=== PATIENT | male | born 1970 | race Caucasian/White ===

== ENCOUNTER → 2021-12-05 10:40 | Outpatient (CLI) | payer OTHER, SELFPAY ==
--- NOTE | ~2021-12-05 | MR_ITS ---
EXAMINATION: MR foot LT wo/w con DATE: 12/05/2021 11:46 INDICATION: Pressure ulcer at the left foot TECHNIQUE: Magnetic resonance imaging (MRI) of the left fore/mid foot was performed without and with 20 mL Multihance intravenous contrast. Sequences included axial, sagittal and coronal T1-weighted FSE , axial and coronal T2-weighted FS FSE, sagittal fluid sensitive FSE STIR, axial T1-weighted FS FSE a nd postcontrast axial, sagittal and coronal T1-weighted FS FSE. COMPARISON: None FINDINGS: There is a deep skin ulceration which extends to the level of the bone at the lateral aspect of the h ead of the fifth metatarsal. There is prominent marrow edema and enhancement with region of geographi c loss of T1 marrow fat signal at the head of the fifth metatarsal consistent with osteomyelitis. Wer e the ulceration and site of osteolysis is located in the region of the footplate of the lateral tapan ateral ligament complex insertion which appears torn. There is slight widening of the dorsolateral as pect of the fifth metatarsophalangeal joint space with mild medial and dorsal subluxation of the base of the fifth proximal phalanx relative to the head of the fifth metatarsal. No other bone lesions krueger spicious for osteomyelitis. Moderate osteoarthritis with mild subarticular edema-like and cystlike ch anges at the third and fourth tarsometatarsal and first metatarsophalangeal joints. Additional modera te osteoarthritis of the first interphalangeal joint. Mild osteoarthritis at many of the remaining monty ints in the mid and forefoot. Prominent diffuse fatty atrophy of the intrinsic musculature of the leo t which could be due to disuse or chronic denervation change. IMPRESSION: 1. Ulceration with underlying osteomyelitis at the lateral head of the fifth metatarsal. 2. Likely associated tear of the fifth metacarpophalangeal lateral collateral ligament complex the pr oximal footplate of which is located at the site of osteomyelitis and with mild dorsal/medial subluxa tion at the metatarsophalangeal joint space. 3. Mild to moderate polyarticular osteoarthritis in the mid and forefoot. Reviewed, dictated and finalized at location A. IMPRESSION: 1. Ulceration with underlying osteomyelitis at the lateral head of the fifth me tatarsal. 2. Likely associated tear of the fifth metacarpophalangeal lateral collateral l igament complex the proximal footplate of which is located at the site of osteo myelitis and with mild dorsal/medial subluxation at the metatarsophalangeal jamie nt space. 3. Mild to moderate polyarticular osteoarthritis in the mid and forefoot.
[2021-12-05 11:07] LABS: Estimated Glomerular Filt Rate > 60
== END ==
PROVIDERS: PCP Internal Medicine; Visit Provider Podiatrist Foot & Ankle Surgery
DX: L89.891 Pressure ulcer of other site, stage 1 (principal); M86.8X4 Other osteomyelitis, hand
CPT/HCPCS: 73720; A9577

== ENCOUNTER 2024-01-29 06:08 | Day surgery (SDC) | payer OTHER, SELFPAY ==
[2024-01-16 09:50] VITALS: BMI 33.5
[2024-01-16 11:34] VITALS: BMI 32.9
--- NOTE | 2024-01-28 10:46 | P.PNAN_ITS ---
Anes - Initial Pre Proc Eval Procedure: Operation Date: 01/29/24 08:30 Proposed Procedures p Diagnostic Colonoscopy - Ever Ibanez MD Date/Time: 01/28/24 10:46 Surgeon: Ever Ibanez MD Pre Op Diagnosis: Positive Cologuard Patient Data Age: 53 Gender: M Height: 2.13 m Weight: 150 kg Allergies Allergy/AdvReac Type Severity Reaction Status Date / Time No Known Allergies Allergy Mild Verified 01/29/24 07:13 Home Medications Medication Instructions Recorded Confirmed Type allopurinol 300 mg tablet 300 mg PO DAILY 01/16/24 01/29/24 History atorvastatin 10 mg tablet 10 mg PO DAILY 01/16/24 01/29/24 History celecoxib 200 mg capsule 200 mg PO DAILY PRN JOINT PAIN 01/16/24 01/29/24 History diltiazem HCl 120 mg 120 mg PO DAILY 01/16/24 01/29/24 History capsule,extended release 24 hr levothyroxine 150 mcg tablet 150 mcg PO DAILY 01/16/24 01/29/24 History prednisone 20 mg tablet 40 mg PO DAILY PRN FLARE UPS 01/16/24 01/29/24 History Patient hx anesthesia problems: none Family hx anesthesia problems: none Results Review: All pre-operative results and documents have been reviewed as part of the pre- operative evaluation. [facility] Past Medical History Medical History (Updated 01/29/24 @ 08:07 by Ever Ibanez MD) Hyperlipidemia Hypertension Hypothyroidism Social History Social History Smoking status: Never smoker Alcohol intake: current Drinks per week: 4 Substance use: never Substance use type: does not use Living arrangements: with family Spiritual care concerns: No Anes - Eval Final PreProcedure Day of Procedure 01/28/24 10:46 Patient weight: obese Heart: regular rate and rhythm Lungs: clear to auscultation Airway: Mallampati scale class II Neurological: alert and oriented Last oral intake: >/= 8 hours ASA classification: III Emergent: no Anesthetic plan: proceed Anesthesia type and monitoring: general GIVS and standard monitoring Results Review: All pre-operative results and documents have been reviewed as part of the pre- operative evaluation. Informed Consent: The patient's anesthetic plan and its attendant risks and benefits were discussed with the patient/family/POA. Questions were solicited and answers provided to the satisfaction of the patient/family/POA.
[2024-01-29 07:15] VITALS: BP 128/90; PULSE 81; RESP 18; TEMP 36.8; O2SAT 98
[2024-01-29] MEDS: LACTATED RINGERS 1,000 ML 150 ML IV CONT (07:18)
--- NOTE | 2024-01-29 08:05 | PM.HPGS ---
History of Present Illness History of Present Illness Consent: Risks, benefits, and alternatives have been discussed and questions answered. Patient agrees to proceed with procedure. Chief complaint: Positive Cologuard Narrative: Johnie Breen is a 53 year old male presents for colonoscopy.. Patient recently had a positive Cologuard test. Patient has had normal bowel movements. He denies abdominal pain. Patient has had no bleeding. Family history is noncontributory. Review of Systems Review of Systems: All systems reviewed & are unremarkable except as noted in HPI and below PMFSH Past Medical History Medical History (Updated 01/29/24 @ 08:07 by Ever Ibanez MD) Hyperlipidemia Hypertension Hypothyroidism Social History Social History Smoking status: Never smoker Alcohol intake: current Drinks per week: 4 Substance use: never Substance use type: does not use Living arrangements: with family Spiritual care concerns: No Meds Home Medications and Allergies Home Medications Medication Instructions Recorded Confirmed Type allopurinol 300 mg tablet 300 mg PO DAILY 01/16/24 01/29/24 History atorvastatin 10 mg tablet 10 mg PO DAILY 01/16/24 01/29/24 History celecoxib 200 mg capsule 200 mg PO DAILY PRN JOINT PAIN 01/16/24 01/29/24 History diltiazem HCl 120 mg 120 mg PO DAILY 01/16/24 01/29/24 History capsule,extended release 24 hr levothyroxine 150 mcg tablet 150 mcg PO DAILY 01/16/24 01/29/24 History prednisone 20 mg tablet 40 mg PO DAILY PRN FLARE UPS 01/16/24 01/29/24 History Allergies Allergy/AdvReac Type Severity Reaction Status Date / Time No Known Allergies Allergy Mild Verified 01/29/24 07:13 Vital Signs Vital Signs - 24 hr 01/29/24 07:15 Temperature 98.3 F Pulse Rate 81 Respiratory Rate 18 Blood Pressure 128/90 Pulse Oximetry 98 Oxygen Delivery Room Air Exam Narrative: Physical exam reveals patient to be alert. Vital signs stable. He exam is unremarkable. Patient is anicteric. Lungs are clear to auscultation and percussion heart is without murmur or extra sounds. Abdomen bowel sounds are present soft nontender with no organomegaly. Digital external rectal exam normal. Assessment and Plan Assessment and plan (1) Positive colorectal cancer screening using Cologuard test: Code(s): R19.5 - Other fecal abnormalities Status: Acute Assessment and Plan: Patient found to have positive Cologuard test. For this reason screening colonoscopy is to be performed.
[2024-01-29 08:37] VITALS: BP 118/83; PULSE 93; RESP 16; O2SAT 95
[2024-01-29 08:47] VITALS: BP 118/87; PULSE 90; RESP 20; O2SAT 98
[2024-01-29 08:57] VITALS: BP 107/84; PULSE 83; RESP 20; O2SAT 100
--- NOTE | 2024-01-29 09:56 | WPDANESPN ---
Anes - Prog Note Post-Op Date/Time: 01/29/24 09:56 Cardiovascular status: normal Respiratory status: normal Airway patency: baseline Mental status: baseline Post-Op hydration status: normal Vital Signs: Last Vital Signs Temp 36.8 C 01/29/24 07:15 Pulse 83 01/29/24 08:57 Resp 20 01/29/24 08:57 BP 107/84 01/29/24 08:57 Pulse Ox 100 01/29/24 08:57 O2 Del Method Room Air 01/29/24 08:57 Pain Score (VAS): 0 I/O: Intake & Output 01/28/24 01/29/24 01/29/24 23:59 07:59 15:59 Intake Total 475 Balance 475 Post-procedural complaints: none Patient Feedback: Patient satisfied with anesthetic care. Other Findings: Patient vital signs back to baseline. Patient denies nausea and vomiting. Patient's pain under control. Patient OK for discharge.
== END 2024-01-29 09:01 | disposition home or self-care (01) ==
PROVIDERS: PCP Internal Medicine; Visit Provider Internal Medicine Gastroenterology
PROC: 0DJD8ZZ Inspection of Lower Intestinal Tract, Via Natural or Artificial Opening Endoscopic (ICD-10-PCS; CPT 45378; principal; 2024-01-29 08:30)
DX: R19.5 Other fecal abnormalities (principal); D12.2 Benign neoplasm of ascending colon; D12.5 Benign neoplasm of sigmoid colon
CPT/HCPCS: 45385

== ENCOUNTER 2024-01-29 07:09 | Outpatient (NON) | payer OTHER, SELFPAY | END 2024-01-29 07:10 | disposition home or self-care (01) | LOC: ANHLAB 01-30 07:11 | PROVIDERS: PCP Internal Medicine; Visit Provider Internal Medicine Gastroenterology | DX: R19.5 Other fecal abnormalities (principal) | CPT/HCPCS: 88305 ==

== ENCOUNTER 2024-08-14 08:35 | Outpatient (CLI) | payer OTHER, SELFPAY ==
--- OUTSIDE RECORDS SUMMARY | 2024-08-14 08:49 | XMS_ITS | Clinical Summary ---
Author Organization [facility] Address [address] [place] [address] Care Team Providers Care Manager Investment Name Role Phone Gilson Salgado MD Primary Care Provider [phone] Source Comments [facility],non-owned Affiliates and Associated Physician Practices is amultiple site organization consisting of ambulatory clinics and hospital sitesin [place], [place], [place] and [place]. This disclosure is being madepursuant to the Care Everywhere program and may not contain all information available regarding this patient. Last updated 18.[facility] Tagstr Social History Tobacco Use Types Packs/Day Years Used Date Smoking Tobacco: Never Assessed Sex and Gender Information Value Date Recorded Sex Assigned at Not on file Gender Identity Not on file Sexual Orientation Not on file Plan of Treatment Health Maintenance Due Date Last Done Comments COLOGUARD (AGES 45-75) - COL ON CA SCREENING 1970 COLON MONITORING 1970 COLONOSCOPY - COLON CA SCREENING 1970 CT COLONOGRAPHY - COLON CA SCREENING 1970 Colorectal Cancer Screening 1970 FIT - COLON CA SCREENING 1970 FLEX SIG - COLON CA SCREENING 1970 LIPID TESTING 1970 HIV SCREENING 1985 HEPATITIS C SCREENING 09/20/1988 DTAP/TDAP/TD VACCINES (1 - Tdap) 1989 HEPATITIS B VACCINE (1 of 3 - 19+ 3-dose series) 1989 PNEUMOCOCCAL VACCINE 50+ (1 of 1 - PCV) 2020 ZOSTER VACCINE (1 of 2) 2020 COVID-19 VACCINE ( - 2023-2 5 season) 2024 INFLUENZA VACCINE (#1) 2024 DEPRESSION SCREENING 05/20/2024 HIB VACCINE Aged Out No longer eligi ble based on patient's age to complete this topic HPV VACCINE Aged Out No longer eligi ble based on patient's age to complete this topic MENINGOCOCCAL (Group B) VACC INE SHARED DECISION-MAKING Aged Out No longer eligibl e based on patient's age to complete this topic MENINGOCOCCAL GROUPS A/C/Y/W VACCINE Aged Out No longer eligible b ased on patient's age to complete this topic PNEUMOCOCCAL VACCINE Aged Out No long er eligible based on patient's age to complete this topic Care Teams Manager Investment Relationship Specialty Start Date End Date Gilson Salgado MD PCP - General Internal Medicine 11/26/13
--- OUTSIDE RECORDS SUMMARY | 2024-08-14 08:49 | XMS_ITS | Referral Summary ---
Author Organization [facility] Address [address] [place] [address] Care Team Providers Care Cotton Ball Bagger Name Role Phone Gilson Salgado MD Primary Care Provider Allergies No known active allergies Medications allopurinoL (ZYLOPRIM) 300 mg tablet Take 600 mg by mouth daily 2 Active atorvastatin (LIPITOR) 10 mg tablet Take 10 mg by mouth daily 2 Active celecoxib (CeleBREX) 200 mg capsule Take 200 mg by mouth 2 (two) times a day as needed 2 Active diltiazem (TIAZAC) 120 mg 24 hr capsule diltiazem CD 120 mg capsule,extende d release 24 hr TAKE 1 CAPSULE BY MOUTH DAILY Active levothyroxine (SYNTHROID) 150 mcg tablet TAKE 1 TABLET BY MOUTH EVERY MORNING AND 1/2 TABLET EVERY EVENING 2 Active mupirocin (BACTROBAN) 2 % ointment mupirocin 2 % topical ointment Active predniSONE (DELTASONE) 20 mg tablet prednisone 20 mg tablet TAKE 2 TABLET BY MOUTH EVERY DAY NEEDED FOR FLARE UPS Active Active Problems Problem Noted Date Diagnosed Date Hypertension 11/26/2013 Overview (08/24/2016): Hypertension Hypothyroidism 11/26/2013 Overview (08/24/2016): Hypothyroidism Late effect of fracture of lower extremity 01/18 Social History Tobacco Use Types Packs/Day Years Used Date Smoking Tobacco: Never Smokeless Tobacco: Never Tobacco Cessation:Counseling Given: Not Answered Alcohol Use Standard Drinks/Week Comments Yes 0 (1 standard drink = 0.6 oz pur e alcohol) Personal Safety Answer Date Recorded Getting School Help Needed Not on file 08/02 Sex and Gender Information Value Date Recorded Sex Assigned at Not on file Legal Sex Male 9:44 PM [employer] Gender Identity Not on file Sexual Orientation Not on file Last Filed Vital Signs Vital Sign Reading Time Taken Comments Blood Pressure 129/92 02/08/2022 1:03 PM CDT Pulse 97 02/08/2022 1:03 PM CDT Temperature 36.8 C (98.3 F) 02/08/2022 1:03 PM CDT Respiratory Rate 20 02/08/2022 1:03 PM CDT Oxygen Saturation 97% 02/08/2022 1:03 PM CDT Inhaled Oxygen Concentration - - Weight 152.2 kg (335 lb 9.6 oz) 02/08/2022 1:03 PM CDT Height 213.4 cm (7') 04/01/2014 2:57 PM [employer] TE[employer] Body Mass Index 33.44 04/01/2014 2:57 PM [employer] Plan of Treatment Not on file Insurance Care Teams Cotton Ball Bagger Relationship Specialty Start Date End Date Gilson Salgado MD PCP - General 04/01/14
--- OUTSIDE RECORDS SUMMARY | 2024-08-14 08:50 | XMS_ITS | Data Portability ---
Author Organization [place] - [employer], Main Office Address [address] [place] [address] Assessment Encounter Date Assessment Date Assessment LastModified by Organization Details LastModified Time 11/27/2022 11/27/2022 Blood free. Continue current therapy follow-up in 4 screenings reviewed Not available 11/27/2022 20:13:12 05/28/2023 05/28/2023 Will continue current therapy blood work Cologuard all questions answered follow-up 6 [email or web address] Not available 05/28/2023 22:11:55 Plan of Treatment Reminders Order Date Submit Date Provider Last Modified By Organization Details Last Modified Time Details Appointments None recorded. Lab noninvasive colorectal cancer DNA + occult blood screening, QL, stool 2023 024 [facility] [employer] (Cologuard Orders Only), [address], [address], [place], [address], 4 05:53:45 T3, free, serum or plasma 2023 024 [facility] (Lab), [address] [place], [address], 4 13:20:34 T4, free, serum 2023 024 [facility] (Lab), [address] [place], [address], 4 13:20:32 TSH, serum or plasma 2023 024 [facility] (Lab), [address] [place], [address], 4 13:30:31 CBC w/ auto diff [email or web address] (Lab), [address] [place], [address], 4 13:11:46 lipid panel, serum 2023 024 [facility] (Lab), [address] [place], [address], 4 13:28:15 CMP, serum or plasma 2023 024 [facility] (Lab), [address] [place], [address], 4 13:28:21 PSA, serum or plasma 2022 023 [facility] (Lab), [address] [place], [address], 3 09:25:49 CBC w/ auto diff 2022 023 [facility] (Lab), [address] [place], [address], 3 19:21:02 TSH, serum or plasma 2022 023 [facility] (Lab), [address] [place], [address], 3 20:27:07 T4, free, serum 2022 023 [facility] (Lab), [address] [place], [address], 3 20:04:46 T3, free, serum or plasma 2022 023 [facility] (Lab), [address] [place], [address], 3 20:04:48 lipid panel, serum 2022 023 [facility] (Lab), [address] [place], [address], 19:47:06 CMP, serum or plasma 2022 023 [facility] (Lab), [address] [place], [address], 19:47:14 Referral None recorded. Procedures None recorded. Surgeries None recorded. Imaging None recorded. Medication Orders diltiazem CD 120 mg capsule,ext ended release 24 hr 2022 023 [address] [id number], [address] [place], [place], [id number], 3 14:30:58 allopurinol 300 mg tablet 2022 023 [id number], [address] [place] [address], [id number], 3 14:30:58 atorvastati n 10 mg tablet [address] [facility] #[facility]329, [address] [place], [place], [id number], 3 14:30:58 Patient TargetsNo targets recorded. Patient Instructions Encounter Date Encounter Id Patient Instructions Last Modified By Organization Details Last Modified Time 11/27/2022 [id number] risk assessment* [email or web address] Not availabl e 11/27/2022 20:13:29 INFLUENZA VACCIN E TD/TDAP PNEUMONIA VACCINE Ordered Recommend ed today, patient declined Patient will get at local pharmacy/health department Recomm ended at age 65 SHINGLES Ordered Recommend ed today, patient declined Patient will get at local pharmacy/health department PSA Ordered No screening necessary patient is up to date COLORECTAL SCREENING No screening necessary patient is up to date DEPRESSION SCREENING Negative BMI Overweight continue your current weight loss efforts try to lose 5% of your body weight try to lose 10% of your body weight NUTRITION PHYSICAL ACTIVITY Need more exercise/physical activity ALCOHOL USE No alcohol use Occasional/So cial Use TOBACCO USE non smoker LUNG CANCER SCREENING Non Smoker-not indicated SEXUALLY ACTIVE HEPATITIS C SCREENING Not indicated GLUCOSE SCREENING LIPID SCREENING [email or web address] Not available 11/27/2022 12:32:52 Reason for Referral None Reported. Results Created Date Observation Date Name Description Value Unit Range Abnormal Flag Note LastModifiedBy Organization Detail LastModifiedTime 04/05/20 22 04/05/2022 C REACT KEVIN PROTE IN,UL TRA SENS C-reactive protein 0.12 mg/dL 0.0-0. 5 Not Available [facility] (Lab) [address] [place], [address], 04/05/2022 19:35:54 04/05/20 22 04/05/2022 COMPR EHENS KEVIN METAB OLIC PANEL sodium 140 mmol/ L 137-14 5 Not Available [facility] (Lab) [address] [place], [address], 04/05/2022 19:35:50 04/05/20 22 04/05/2022 COMPR EHENS KEVIN METAB OLIC PANEL potassium 4.5 mmol/ L 3.5-5. 1 Not Available [facility] (Lab) [address] [place], [address], 04/05/2022 19:35:50 04/05/20 22 04/05/2022 COMPR EHENS KEVIN METAB OLIC PANEL chloride 105 mmol/ L 98-107 Not Available [facility] (Lab) [address] [place], [address], 04/05/2022 19:35:50 04/05/20 22 04/05/2022 COMPR EHENS KEVIN METAB OLIC PANEL carbon dioxide 27 mmol/ L 22-30 Not Available [facility] (Lab) [address] [place], [address], 04/05/2022 19:35:50 04/05/20 22 04/05/2022 COMPR EHENS KEVIN METAB OLIC PANEL anion gap 12.5 mmol/ L 14-22 low Not Available [facility] (Lab) [address] [place], [address], 04/05/2022 19:35:50 04/05/20 22 04/05/2022 COMPR EHENS KEVIN METAB OLIC PANEL glucose 100 mg/dL 70-99 high Not Available [facility] (Lab) [address] [place], [address], 04/05/2022 19:35:50 04/05/20 22 04/05/2022 COMPR EHENS KEVIN METAB OLIC PANEL BUN 11 mg/dL 8-19 Not Available [facility] (Lab) [address] [place], [address], 04/05/2022 19:35:50 04/05/20 22 04/05/2022 COMPR EHENS KEVIN METAB OLIC PANEL creatinine 0.82 mg/dL 0.66-1 .25 Not Available [facility] (Lab) [address] [place], [address], 04/05/2022 19:35:50 04/05/20 22 04/05/2022 COMPR EHENS KEVIN METAB OLIC PANEL GFR >60 Refer ence Range : [place] ge GFR Healt hy Adult : >60 mL/mi n/1.7 3 m2 Chron ic Kidne y Disea se: 15-60 mL/mi n/1.7 3 m2 Kidne y Failu re: <15/m L/min /1.73 m2 www.n iddk. nih.g ov The MDRD study equat ion has not been valid ated in child nathen <18 years of age; pregn ant women ; the elder ly >85 years of age; or in some racia l or ethni c subgr oups, such as Hispa nics. Outsi de the valid ated neel eters , estim ated GFR is less accur ate, requi ring clini justice judgm ent on a case- by-ca se basis . Clini justice inter preta tion for other races and ages must be made by the clini trav. The MDRD study equat ion has not been valid ated for the evalu ation of serum creat inine relat ed to nutri jonathan l statu s or medic ation usage . For perso ns <18 years of age, a pedia tric GFR calcu lator is avail able on the [facility] websi te: https ://celso w.kid jose.o rg/pr ofess ional s/kdo qi/gf r_cal culat or Not Available [facility] (Lab) [address] [place], [address], 04/05/2022 19:35:50 04/05/20 22 04/05/2022 COMPR EHENS KEVIN METAB OLIC PANEL alkaline phosphatase 77 U/L 38-126 Not Available [facility] (Lab) [address] [place], [address], 04/05/2022 19:35:50 04/05/20 22 04/05/2022 COMPR EHENS KEVIN METAB OLIC PANEL alanine aminotransfe rase 24 U/L 0-50 Not Available [facility] (Lab) [address] [place], [address], 04/05/2022 19:35:50 04/05/20 22 04/05/2022 COMPR EHENS KEVIN METAB OLIC PANEL aspartate aminotransfe rase 26 U/L 15-46 Not Available [facility] (Lab) [address] [place], [address], 04/05/2022 19:35:50 04/05/20 22 04/05/2022 COMPR EHENS KEVIN METAB OLIC PANEL bilirubin, total 0.80 mg/dL 0.20-1 .30 Not Available [facility] (Lab) [address] [place], [address], 04/05/2022 19:35:50 04/05/20 22 04/05/2022 COMPR EHENS KEVIN METAB OLIC PANEL calcium 9.6 mg/dL 8.4-10 .2 Not Available [facility] (Lab) [address] [place], [address], 04/05/2022 19:35:50 04/05/20 22 04/05/2022 COMPR EHENS KEVIN METAB OLIC PANEL total protein 6.9 g/dL 6.3-8. 2 Not Available [facility] (Lab) [address] [place], [address], 04/05/2022 19:35:50 04/05/20 22 04/05/2022 COMPR EHENS KEVIN METAB OLIC PANEL albumin 4.2 g/dL 3.4-5. 0 Not Available [facility] (Lab) [address] [place], [address], 04/05/2022 19:35:50 04/05/20 22 04/05/2022 COMPR EHENS KEVIN METAB OLIC PANEL globulin 2.7 g/dL 2.6-4. 2 Not Available [facility] (Lab) [address] [place], [address], 04/05/2022 19:35:50 04/05/20 22 04/05/2022 COMPR EHENS KEVIN METAB OLIC PANEL A/G ratio 1.6 ratio 1.0-2. 0 Not Available [facility] (Lab) [address] [place], [address], 04/05/2022 19:35:50 04/05/20 22 04/05/2022 SEDIM ENTAT ION RATE erythrocyte sedimentatio n rate 7 mm/HR 0-20 Not Available [facility] (Lab) [address] [place], [address], 04/05/2022 19:15:14 04/05/20 22 04/05/2022 CBC W/O DIFFE RENTI AL white blood cells 7.5 x10'3 /uL 4.2-10 .8 Not Available [facility] (Lab) [address] [place], [address], 04/05/2022 18:49:53 04/05/20 22 04/05/2022 CBC W/O DIFFE RENTI AL red blood cells 5.07 x10'6 /uL 4.10-5 .80 Not Available [facility] (Lab) [address] [place], [address], 04/05/2022 18:49:53 04/05/20 22 04/05/2022 CBC W/O DIFFE RENTI AL hemoglobin 15.5 g/dL 13.2-1 7.0 Not Available [facility] (Lab) [address] [place], [address], 04/05/2022 18:49:53 04/05/20 22 04/05/2022 CBC W/O DIFFE RENTI AL hematocrit 48.2 % 39.3-5 0.0 Not Available [facility] (Lab) [address] [place], [address], 04/05/2022 18:49:53 04/05/20 22 04/05/2022 CBC W/O DIFFE RENTI AL mean red cell volume 95.1 fL 80.0-9 7.0 Not Available [facility] (Lab) [address] [place], [address], 04/05/2022 18:49:53 04/05/20 22 04/05/2022 CBC W/O DIFFE RENTI AL mean red cell hemoglobin 30.6 pg 27.0-3 3.0 Not Available [facility] (Lab) [address] [place], [address], 04/05/2022 18:49:53 04/05/20 22 04/05/2022 CBC W/O DIFFE RENTI AL mean RBC HGB concentratio n 32.2 g/dL 31.0-3 6.0 Not Available [facility] (Lab) [address] [place], [address], 04/05/2022 18:49:53 04/05/20 22 04/05/2022 CBC W/O DIFFE RENTI AL red cell distribution width 13.3 % 11.8-1 5.5 Not Available [facility] (Lab) [address] [place], [address], 04/05/2022 18:49:53 04/05/2004/05/2022 CBC W/O DIFFE RENTI AL platelets 254 x10'3 /uL 150-40 0 Not Available [facility] (Lab) [address] [place], [address], 04/05/2022 18:49:53 04/05/2004/05/2022 CBC W/O DIFFE RENTI AL mean platelet volume 11.1 fL 9.0-12 .4 Not Available [facility] (Lab) [address] [place], [address], 04/05/2022 18:49:53 11/14/19 23 11/13/2022 CBC/C OMPLE TE BLD COUNT W/DIF F white blood cells 8.3 x10'3 /uL 4.2-10 .8 Not Available [facility] (Lab) [address] [place], [address], 11/13/2022 19:21:02 11/14/1911/13/2022 CBC/C OMPLE TE BLD COUNT W/DIF F red blood cells 5.36 x10'6 /uL 4.10-5 .80 Not Available [facility] (Lab) [address] [place], [address], 11/13/2022 19:21:02 11/14/19 23 11/13/2022 CBC/C OMPLE TE BLD COUNT W/DIF F hemoglobin 16.1 g/dL 13.2-1 7.0 Not Available [facility] (Lab) [address] [place], [address], 11/13/2022 19:21:02 11/14/19 23 11/13/2022 CBC/C OMPLE TE BLD COUNT W/DIF F hematocrit 50.5 % 39.3-5 0.0 high Not Available [facility] (Lab) [address] [place], [address], 11/13/2022 19:21:02 11/14/19 23 11/13/2022 CBC/C OMPLE TE BLD COUNT W/DIF F mean red cell volume 94.2 fL 80.0-9 7.0 Not Available [facility] (Lab) [address] [place], [address], 11/13/2022 19:21:02 11/14/19 23 11/13/2022 CBC/C OMPLE TE BLD COUNT W/DIF F mean red cell hemoglobin 30.0 pg 27.0-3 3.0 Not Available [facility] (Lab) [address] [place], [address], 11/13/2022 19:21:02 11/14/19 23 11/13/2022 CBC/C OMPLE TE BLD COUNT W/DIF F mean RBC HGB concentratio n 31.9 g/dL 31.0-3 6.0 Not Available [facility] (Lab) [address] [place], [address], 11/13/2022 19:21:02 11/14/19 23 11/13/2022 CBC/C OMPLE TE BLD COUNT W/DIF F red cell distribution width 14.5 % 11.8-1 5.5 Not Available [facility] (Lab) [address] [place], [address], 11/13/2022 19:21:02 11/14/19 23 11/13/2022 CBC/C OMPLE TE BLD COUNT W/DIF F platelets 239 x10'3 /uL 150-40 0 Not Available [facility] (Lab) [address] [place], [address], 11/13/2022 19:21:02 11/14/19 23 11/13/2022 CBC/C OMPLE TE BLD COUNT W/DIF F mean platelet volume 11.3 fL 9.0-12 .4 Not Available [facility] (Lab) [address] [place], [address], 11/13/2022 19:21:02 11/14/19 23 11/13/2022 CBC/C OMPLE TE BLD COUNT W/DIF F neutrophils 71.2 % 39.0-7 2.0 Not Available [facility] (Lab) [address] [place], [address], 11/13/2022 19:21:02 11/14/19 23 11/13/2022 CBC/C OMPLE TE BLD COUNT W/DIF F lymphocytes 18.3 % 16.0-4 7.0 Not Available [facility] (Lab) [address] [place], [address], 11/13/2022 19:21:02 11/14/19 23 11/13/2022 CBC/C OMPLE TE BLD COUNT W/DIF F monocytes 8.2 % 5.0-12 .0 Not Available [facility] (Lab) [address] [place], [address], 11/13/2022 19:21:02 11/14/19 23 11/13/2022 CBC/C OMPLE TE BLD COUNT W/DIF F eosinophils 1.9 % 1.0-7. 0 Not Available [facility] (Lab) [address] [place], [address], 11/13/2022 19:21:02 11/14/19 23 11/13/2022 CBC/C OMPLE TE BLD COUNT W/DIF F basophils 0.2 % 0.0-2. 0 Not Available [facility] (Lab) [address] [place], [address], 11/13/2022 19:21:02 11/14/19 23 11/13/2022 CBC/C OMPLE TE BLD COUNT W/DIF F immature granulocytes 0.2 % 0.00-0 .50 Not Available [facility] (Lab) [address] [place], [address], 11/13/2022 19:21:02 11/14/19 23 11/13/2022 CBC/C OMPLE TE BLD COUNT W/DIF F neutrophils, absolute count 5.92 x10'3 /uL 1.5-8. 0 Not Available [facility] (Lab) [address] [place], [address], 11/13/2022 19:21:02 11/14/1911/13/2022 CBC/C OMPLE TE BLD COUNT W/DIF F lymphocytes, absolute count 1.52 x10'3 /uL 1.07-3 .43 Not Available [facility] (Lab) [address] [place], [address], 11/13/2022 19:21:02 11/14/1911/13/2022 CBC/C OMPLE TE BLD COUNT W/DIF F monocytes, absolute count 0.68 x10'3 /uL 0.29-0 .99 Not Available [facility] (Lab) [address] [place], [address], 11/13/2022 19:21:02 11/14/19 23 11/13/2022 CBC/C OMPLE TE BLD COUNT W/DIF F eosinophils, absolute count 0.16 x10'3 /uL 0.02-0 .53 Not Available [facility] (Lab) [address] [place], [address], 11/13/2022 19:21:02 11/14/19 23 11/13/2022 CBC/C OMPLE TE BLD COUNT W/DIF F basophils, absolute count 0.02 x10'3 /uL 0.01-0 .08 Not Available [facility] (Lab) [address] [place], [address], 11/13/2022 19:21:02 11/14/19 23 11/13/2022 CBC/C OMPLE TE BLD COUNT W/DIF F immature granulocytes ,absolute 0.02 x10'3 /uL 0.00-0 .05 Not Available [facility] (Lab) [address] [place], [address], 11/13/2022 19:21:02 11/14/19 23 11/13/2022 CBC/C OMPLE TE BLD COUNT W/DIF F nucleated red blood cells 0.0 % -0 Not Available [facility] (Lab) [address] [place], [address], 11/13/2022 19:21:02 11/14/1911/13/2022 CBC/C OMPLE TE BLD COUNT W/DIF F NRBC# 0.00 x10'3 /uL Not Available [facility] (Lab) [address] [place], [address], 11/13/2022 19:21:02 11/14/19 23 11/13/2022 LIPID PANEL cholesterol 141 mg/dL 140-19 9 NIH LEIDY NSUS RECOM MENDA TION FOR CALVIN STERO L: ADULT CHILD LOW RISK: <200 <170 BORDE RLINE : <200- 239 ----- HIGH RISK: >240 >200 Not Available [facility] (Lab) [address] [place], [address], 11/13/2022 19:47:06 11/14/19 23 11/13/2022 LIPID PANEL triglyceride s 194 mg/dL 0-150 high NIH LEIDY NSUS REPOR T RECOM MENDA TION FOR TRIGL YCERI RONNI: ADULT CHILD LOW RISK: <150 ----- BODER LINE: 150-1 99 ----- HIGH RISK: >200 ----- Not Available [facility] (Lab) [address] [place], [address], 11/13/2022 19:47:06 11/14/1911/13/2022 LIPID PANEL HDL cholesterol 42 mg/dL 40- Not Available [facility] (Lab) [address] [place], [address], 11/13/2022 19:47:06 11/14/1911/13/2022 LIPID PANEL LDL cholesterol, calculated 60 mg/dL 0-130 NIH LEIDY NSUS REPOR T RECOM MENDA TIONS FOR LDL: ADULT CHILD LOW RISK <130 <110 (OPTI MAL LDL) <100 ----- BORDE RLINE : 130-1 59 ----- HIGH RISK: >160 >130 A TRIGL YCERI DE RESUL T >400 INVAL IDATE S THE CALCU LATIO N FOR LDL FRACT IONAT ION - THE LDL RESUL T WILL NOT BE REPOR LUKE. Not Available [facility] (Lab) [address] [place], [address], 11/13/2022 19:47:06 11/14/19 23 11/13/2022 COMPR EHENS KEVIN METAB OLIC PANEL sodium 142 mmol/ L 137-14 5 Not Available [facility] (Lab) [address] [place], [address], 11/13/2022 19:47:14 11/14/1911/13/2022 COMPR EHENS KEVIN METAB OLIC PANEL potassium 4.4 mmol/ L 3.5-5. 1 Not Available [facility] (Lab) [address] [place], [address], 11/13/2022 19:47:14 11/14/19 23 11/13/2022 COMPR EHENS KEVIN METAB OLIC PANEL chloride 104 mmol/ L 98-107 Not Available [facility] (Lab) [address] [place], [address], 11/13/2022 19:47:14 11/14/19 23 11/13/2022 COMPR EHENS KEVIN METAB OLIC PANEL carbon dioxide 27 mmol/ L 22-30 Not Available [facility] (Lab) [address] [place], [address], 11/13/2022 19:47:14 11/14/19 23 11/13/2022 COMPR EHENS KEVIN METAB OLIC PANEL anion gap 15.4 mmol/ L 14-22 Not Available [facility] (Lab) [address] [place], [address], 11/13/2022 19:47:14 11/14/19 23 11/13/2022 COMPR EHENS KEVIN METAB OLIC PANEL glucose 83 mg/dL 70-99 Not Available [facility] (Lab) [address] [place], [address], 11/13/2022 19:47:14 11/14/19 23 11/13/2022 COMPR EHENS KEVIN METAB OLIC PANEL BUN 14 mg/dL 8-19 Not Available [facility] (Lab) [address] [place], [address], 11/13/2022 19:47:14 11/14/19 23 11/13/2022 COMPR EHENS KEVIN METAB OLIC PANEL creatinine 1.06 mg/dL 0.66-1 .25 Not Available [facility] (Lab) [address] [place], [address], 11/13/2022 19:47:14 11/14/19 23 11/13/2022 COMPR EHENS KEVIN METAB OLIC PANEL GFR >60 Refer ence Range : [place] ge GFR Healt hy Adult : >60 mL/mi n/1.7 3 m2 Chron ic Kidne y Disea se: 15-60 mL/mi n/1.7 3 m2 Kidne y Failu re: <15/m L/min /1.73 m2 www.n iddk. nih.g ov The MDRD study equat ion has not been valid ated in child nathen <18 years of age; pregn ant women ; the elder ly >85 years of age; or in some racia l or ethni c subgr oups, such as Hispa nics. Outsi de the valid ated neel eters , estim ated GFR is less accur ate, requi ring clini justice judgm ent on a case- by-ca se basis . Clini justice inter preta tion for other races and ages must be made by the clini trav. The MDRD study equat ion has not been valid ated for the evalu ation of serum creat inine relat ed to nutri jonathan l statu s or medic ation usage . For perso ns <18 years of age, a pedia tric GFR calcu lator is avail able on the [facility] websi te: https ://celso w.kid jose.o rg/pr ofess ional s/kdo qi/gf r_cal culat or Not Available [facility] (Lab) [address] [place], [address], 11/13/2022 19:47:14 11/14/1911/13/2022 COMPR EHENS KEVIN METAB OLIC PANEL alkaline phosphatase 91 U/L 38-126 Not Available [facility] (Lab) [address] [place], [address], 11/13/2022 19:47:14 11/14/1911/13/2022 COMPR EHENS KEVIN METAB OLIC PANEL alanine aminotransfe rase 30 U/L 0-50 Not Available [facility] (Lab) [address] [place], [address], 11/13/2022 19:47:14 11/14/1911/13/2022 COMPR EHENS KEVIN METAB OLIC PANEL aspartate aminotransfe rase 32 U/L 15-46 Not Available [facility] (Lab) [address] [place], [address], 11/13/2022 19:47:14 11/14/19 23 11/13/2022 COMPR EHENS KEVIN METAB OLIC PANEL bilirubin, total 0.70 mg/dL 0.20-1 .30 Not Available [facility] (Lab) [address] [place], [address], 11/13/2022 19:47:14 11/14/19 23 11/13/2022 COMPR EHENS KEVIN METAB OLIC PANEL calcium 9.7 mg/dL 8.4-10 .2 Not Available [facility] (Lab) [address] [place], [address], 11/13/2022 19:47:14 11/14/19 23 11/13/2022 COMPR EHENS KEVIN METAB OLIC PANEL total protein 7.6 g/dL 6.3-8. 2 Not Available [facility] (Lab) [address] [place], [address], 11/13/2022 19:47:14 11/14/19 23 11/13/2022 COMPR EHENS KEVIN METAB OLIC PANEL albumin 4.5 g/dL 3.4-5. 0 Not Available [facility] (Lab) [address] [place], [address], 11/13/2022 19:47:14 11/14/19 23 11/13/2022 COMPR EHENS KEVIN METAB OLIC PANEL globulin 3.1 g/dL 2.6-4. 2 Not Available [facility] (Lab) [address] [place], [address], 11/13/2022 19:47:14 11/14/19 23 11/13/2022 COMPR EHENS KEVIN METAB OLIC PANEL A/G ratio 1.5 ratio 1.0-2. 0 Not Available [facility] (Lab) [address] [place], [address], 11/13/2022 19:47:14 11/14/19 23 11/13/2022 T4 FREE free T4 1.64 NG/dL 0.78-2 .19 Not Available [facility] (Lab) [address] [place], [address], 11/13/2022 20:04:46 11/14/19 23 11/13/2022 T3 FREE free T3 3.6 pg/mL 2.77-5 .27 Not Available [facility] (Lab) [address] [place], [address], 11/13/2022 20:04:47 11/14/19 23 11/13/2022 TSH thyroid-stim ulating hormone 0.355 uIU/m L 0.465- 4.680 low Not Available [facility] (Lab) [address] [place], [address], 11/13/2022 20:27:07 11/14/19 23 11/13/2022 PSA SCREE N PSA medicare screen 0.90 NG/mL 0.00-4 .00 Not Available [facility] (Lab) [address] [place], [address], 11/13/2022 20:27:17 05/28/19 24 05/28/2023 CBC/C OMPLE TE BLD COUNT W/DIF F white blood cells 9.4 x10'3 /uL 4.2-10 .8 Not Available [facility] (Lab) [address] [place], [address], 05/28/2023 12:41:45 05/28/19 24 05/28/2023 CBC/C OMPLE TE BLD COUNT W/DIF F red blood cells 5.35 x10'6 /uL 4.10-5 .80 Not Available [facility] (Lab) [address] [place], [address], 05/28/2023 12:41:45 05/28/19 24 05/28/2023 CBC/C OMPLE TE BLD COUNT W/DIF F hemoglobin 17.0 g/dL 13.2-1 7.0 Not Available [facility] (Lab) [address] [place], [address], 05/28/2023 12:41:45 05/28/19 24 05/28/2023 CBC/C OMPLE TE BLD COUNT W/DIF F hematocrit 51.3 % 39.3-5 0.0 high Not Available [facility] (Lab) [address] [place], [address], 05/28/2023 12:41:45 05/28/19 24 05/28/2023 CBC/C OMPLE TE BLD COUNT W/DIF F mean red cell volume 95.9 fL 80.0-9 7.0 Not Available [facility] (Lab) [address] [place], [address], 05/28/2023 12:41:45 05/28/19 24 05/28/2023 CBC/C OMPLE TE BLD COUNT W/DIF F mean red cell hemoglobin 31.8 pg 27.0-3 3.0 Not Available [facility] (Lab) [address] [place], [address], 05/28/2023 12:41:45 05/28/19 24 05/28/2023 CBC/C OMPLE TE BLD COUNT W/DIF F mean RBC HGB concentratio n 33.1 g/dL 31.0-3 6.0 Not Available [facility] (Lab) [address] [place], [address], 05/28/2023 12:41:45 05/28/19 24 05/28/2023 CBC/C OMPLE TE BLD COUNT W/DIF F red cell distribution width 12.9 % 11.8-1 5.5 Not Available [facility] (Lab) [address] [place], [address], 05/28/2023 12:41:45 05/28/19 24 05/28/2023 CBC/C OMPLE TE BLD COUNT W/DIF F platelets 246 x10'3 /uL 150-40 0 Not Available [facility] (Lab) [address] [place], [address], 05/28/2023 12:41:45 05/28/19 24 05/28/2023 CBC/C OMPLE TE BLD COUNT W/DIF F mean platelet volume 10.7 fL 9.0-12 .4 Not Available [facility] (Lab) [address] [place], [address], 05/28/2023 12:41:45 05/28/19 24 05/28/2023 CBC/C OMPLE TE BLD COUNT W/DIF F neutrophils 69.7 % 39.0-7 2.0 Not Available [facility] (Lab) [address] [place], [address], 05/28/2023 12:41:45 05/28/19 24 05/28/2023 CBC/C OMPLE TE BLD COUNT W/DIF F lymphocytes 18.5 % 16.0-4 7.0 Not Available [facility] (Lab) [address] [place], [address], 05/28/2023 12:41:45 05/28/19 24 05/28/2023 CBC/C OMPLE TE BLD COUNT W/DIF F monocytes 9.0 % 5.0-12 .0 Not Available [facility] (Lab) [address] [place], [address], 05/28/2023 12:41:45 05/28/19 24 05/28/2023 CBC/C OMPLE TE BLD COUNT W/DIF F eosinophils 2.3 % 1.0-7. 0 Not Available [facility] (Lab) [address] [place], [address], 05/28/2023 12:41:45 05/28/19 24 05/28/2023 CBC/C OMPLE TE BLD COUNT W/DIF F basophils 0.2 % 0.0-2. 0 Not Available [facility] (Lab) [address] [place], [address], 05/28/2023 12:41:45 05/28/19 24 05/28/2023 CBC/C OMPLE TE BLD COUNT W/DIF F immature granulocytes 0.3 % 0.00-0 .50 Not Available [facility] (Lab) [address] [place], [address], 05/28/2023 12:41:45 05/28/19 24 05/28/2023 CBC/C OMPLE TE BLD COUNT W/DIF F neutrophils, absolute count 6.53 x10'3 /uL 1.5-8. 0 Not Available [facility] (Lab) [address] [place], [address], 05/28/2023 12:41:45 05/28/19 24 05/28/2023 CBC/C OMPLE TE BLD COUNT W/DIF F lymphocytes, absolute count 1.73 x10'3 /uL 1.07-3 .43 Not Available [facility] (Lab) [address] [place], [address], 05/28/2023 12:41:45 05/28/19 24 05/28/2023 CBC/C OMPLE TE BLD COUNT W/DIF F monocytes, absolute count 0.84 x10'3 /uL 0.29-0 .99 Not Available [facility] (Lab) [address] [place], [address], 05/28/2023 12:41:45 05/28/19 24 05/28/2023 CBC/C OMPLE TE BLD COUNT W/DIF F eosinophils, absolute count 0.22 x10'3 /uL 0.02-0 .53 Not Available [facility] (Lab) [address] [place], [address], 05/28/2023 12:41:45 05/28/19 24 05/28/2023 CBC/C OMPLE TE BLD COUNT W/DIF F basophils, absolute count 0.02 x10'3 /uL 0.01-0 .08 Not Available [facility] (Lab) [address] [place], [address], 05/28/2023 12:41:45 05/28/19 24 05/28/2023 CBC/C OMPLE TE BLD COUNT W/DIF F immature granulocytes ,absolute 0.03 x10'3 /uL 0.00-0 .05 Not Available [facility] (Lab) [address] [place], [address], 05/28/2023 12:41:45 05/28/19 24 05/28/2023 CBC/C OMPLE TE BLD COUNT W/DIF F nucleated red blood cells 0.0 % -0 Not Available [facility] (Lab) [address] [place], [address], 05/28/2023 12:41:45 05/28/19 24 05/28/2023 CBC/C OMPLE TE BLD COUNT W/DIF F NRBC# 0.00 x10'3 /uL Not Available [facility] (Lab) [address] [place], [address], 05/28/2023 12:41:45 05/28/19 24 05/28/2023 T4 FREE free T4 1.37 NG/dL 0.78-2 .19 Not Available [facility] (Lab) [address] [place], [address], 05/28/2023 13:20:32 05/28/19 24 05/28/2023 T3 FREE free T3 3.6 pg/mL 2.77-5 .27 Not Available [facility] (Lab) [address] [place], [address], 05/28/2023 13:20:34 05/28/19 24 05/28/2023 LIPID PANEL cholesterol 163 mg/dL 140-19 9 NIH LEIDY NSUS RECOM MENDA TION FOR CALVIN STERO L: ADULT CHILD LOW RISK: <200 <170 BORDE RLINE : <200- 239 ----- HIGH RISK: >240 >200 Not Available [facility] (Lab) [address] [place], [address], 05/28/2023 13:28:15 05/28/19 24 05/28/2023 LIPID PANEL triglyceride s 163 mg/dL 0-150 high NIH LEIDY NSUS REPOR T RECOM MENDA TION FOR TRIGL YCERI RONNI: ADULT CHILD LOW RISK: <150 ----- BODER LINE: 150-1 99 ----- HIGH RISK: >200 ----- Not Available [facility] (Lab) [address] [place], [address], 05/28/2023 13:28:15 05/28/19 24 05/28/2023 LIPID PANEL HDL cholesterol 45 mg/dL 40- Not Available [facility] (Lab) [address] [place], [address], 05/28/2023 13:28:15 05/28/19 24 05/28/2023 LIPID PANEL LDL cholesterol, calculated 85 mg/dL 0-130 NIH LEIDY NSUS REPOR T RECOM MENDA TIONS FOR LDL: ADULT CHILD LOW RISK <130 <110 (OPTI MAL LDL) <100 ----- BORDE RLINE : 130-1 59 ----- HIGH RISK: >160 >130 A TRIGL YCERI DE RESUL T >400 INVAL IDATE S THE CALCU LATIO N FOR LDL FRACT IONAT ION - THE LDL RESUL T WILL NOT BE REPOR LUKE. Not Available [facility] (Lab) [address] [place], [address], 05/28/2023 13:28:15 05/28/19 24 05/28/2023 COMPR EHENS KEVIN METAB OLIC PANEL sodium 140 mmol/ L 137-14 5 Not Available [facility] (Lab) [address] [place], [address], 05/28/2023 13:28:21 05/28/19 24 05/28/2023 COMPR EHENS KEVIN METAB OLIC PANEL potassium 4.0 mmol/ L 3.5-5. 1 Not Available [facility] (Lab) [address] [place], [address], 05/28/2023 13:28:21 05/28/19 24 05/28/2023 COMPR EHENS KEVIN METAB OLIC PANEL chloride 103 mmol/ L 98-107 Not Available [facility] (Lab) [address] [place], [address], 05/28/2023 13:28:21 05/28/19 24 05/28/2023 COMPR EHENS KEVIN METAB OLIC PANEL carbon dioxide 28 mmol/ L 22-30 Not Available [facility] (Lab) [address] [place], [address], 05/28/2023 13:28:21 05/28/19 24 05/28/2023 COMPR EHENS KEVIN METAB OLIC PANEL anion gap 13.0 mmol/ L 14-22 low Not Available [facility] (Lab) [address] [place], [address], 05/28/2023 13:28:21 05/28/19 24 05/28/2023 COMPR EHENS KEVIN METAB OLIC PANEL glucose 84 mg/dL 70-99 Not Available [facility] (Lab) [address] [place], [address], 05/28/2023 13:28:21 05/28/19 24 05/28/2023 COMPR EHENS KEVIN METAB OLIC PANEL BUN 13 mg/dL 8-19 Not Available [facility] (Lab) [address] [place], [address], 05/28/2023 13:28:21 05/28/19 24 05/28/2023 COMPR EHENS KEVIN METAB OLIC PANEL creatinine 0.84 mg/dL 0.66-1 .25 Not Available [facility] (Lab) [address] [place], [address], 05/28/2023 13:28:21 05/28/19 24 05/28/2023 COMPR EHENS KEVIN METAB OLIC PANEL GFR >60 Refer ence Range : [place] ge GFR Healt hy Adult : >60 mL/mi n/1.7 3 m2 Chron ic Kidne y Disea se: 15-60 mL/mi n/1.7 3 m2 Kidne y Failu re: <15/m L/min /1.73 m2 www.n iddk. nih.g ov The MDRD study equat ion has not been valid ated in child nathen <18 years of age; pregn ant women ; the elder ly >85 years of age; or in some racia l or ethni c subgr oups, such as Leena nics. Outsi de the valid ated neel eters , estim ated GFR is less accur ate, requi ring clini justice judgm ent on a case- by-ca se basis . Clini justice inter preta tion for other races and ages must be made by the clini trav. The MDRD study equat ion has not been valid ated for the evalu ation of serum creat inine relat ed to nutri jonathan l statu s or medic ation usage . For perso ns <18 years of age, a pedia tric GFR calcu lator is avail able on the F websi te: https ://celso mccormack.jordyn garcia.o blair/pr ofess ional s/kdo qi/gf r_cal culat or Not Available [facility] (Lab) [address] [place], [address], 05/28/2023 13:28:21 05/28/19 24 05/28/2023 COMPR EHENS KEVIN METAB OLIC PANEL alkaline phosphatase 88 U/L 38-126 Not Available [facility] (Lab) [address] [place], [address], 05/28/2023 13:28:21 05/28/19 24 05/28/2023 COMPR EHENS KEVIN METAB OLIC PANEL alanine aminotransfe rase 40 U/L 0-50 Not Available [facility] (Lab) [address] [place], [address], 05/28/2023 13:28:21 05/28/19 24 05/28/2023 COMPR EHENS KEVIN METAB OLIC PANEL aspartate aminotransfe rase 32 U/L 15-46 Not Available [facility] (Lab) [address] [place], [address], 05/28/2023 13:28:21 05/28/19 24 05/28/2023 COMPR EHENS KEVIN METAB OLIC PANEL bilirubin, total 0.80 mg/dL 0.20-1 .30 Not Available [facility] (Lab) [address] [place], [address], 05/28/2023 13:28:21 05/28/19 24 05/28/2023 COMPR EHENS KEVIN METAB OLIC PANEL calcium 10.1 mg/dL 8.4-10 .2 Not Available [facility] (Lab) [address] [place], [address], 05/28/2023 13:28:21 05/28/19 24 05/28/2023 COMPR EHENS KEVIN METAB OLIC PANEL total protein 7.8 g/dL 6.3-8. 2 Not Available [facility] (Lab) [address] [place], [address], 05/28/2023 13:28:21 05/28/19 24 05/28/2023 COMPR EHENS KEVIN METAB OLIC PANEL albumin 4.7 g/dL 3.4-5. 0 Not Available [facility] (Lab) [address] [place], [address], 05/28/2023 13:28:21 05/28/19 24 05/28/2023 COMPR EHENS KEVIN METAB OLIC PANEL globulin 3.1 g/dL 2.6-4. 2 Not Available [facility] (Lab) [address] [place], [address], 05/28/2023 13:28:21 05/28/19 24 05/28/2023 COMPR EHENS KEVIN METAB OLIC PANEL A/G ratio 1.5 ratio 1.0-2. 0 Not Available [facility] (Lab) [address] [place], [address], 05/28/2023 13:28:21 05/28/19 24 05/28/2023 TSH thyroid-stim ulating hormone 0.797 uIU/m L 0.465- 4.680 Not Available [facility] (Lab) [address] [place], [address], 05/28/2023 13:30:31 11/17/19 24 11/17/2023 COLOG UARD cologuard result reportable Sample Could Not Be Proces sed n/a The stool excee ds the allow able weigh t (300 grams ). The patie nt will be conta cted to initi ate a new sampl e colle ction . Not Available [facility] (Cologuard Orders Only) [address], [place], [address], 11/20/2023 05:53:45 12/03/19 24 12/03/2023 COLOG UARD cologuard result reportable Positi ve negati ve abnormal POSIT KEVIN TEST RESUL T. A posit kevin Colog uard resul t shoul d be follo wed with a colon oscop y or visua l exami natio n of the colon . The tee l value (refe rence range ) for this assay is negat kevin. TEST DESCR IPTIO N: [place] site algor ithmi c keven sis of stool DNA-b mauri montalvo with hemog lobin immun oassa y. Quant itati ve value s of indiv idual bioma rkers are not repor table and are not assoc iated with indiv idual bioma rker resul t refer ence range s. Colog uard is inten ded for color ectal cance r scree sarah of adult s of eithe r sex, 45 years or older , who are at [facility] for color ectal cance r (CRC) . Colog uard has been appro nedra for use by the U.[place]. FDA. The perfo rmanc e of Colog uard was estab lishe d in a cross secti onal study of [facility] adult s aged 50-84 . Colog uard perfo rmanc e in patie nts ages 45 to 49 years was estim ated by sub-g roup keven sis of near- age group s. Colon oscop ies perfo rmed for a posit kevin resul t may find as the most clini sue signi kevin t lescameron n: color ectal cance r [4.0% ], advan sandro adeno ma (incl uding sessi le iftikhar luke polyp s great er than or equal to 1cm diame ter) [20%] or non- advan sandro adeno ma [31%] ; or no color ectal neopl zoie [45%] . These estim ates are deriv ed from a prosp ectiv e cross -sect ional scree sarah study of 10,00 0 indiv idual s at [facility] risk for color ectal cance r who were scree renetta with both Colog uard and colon oscop y. (Nish Spicer al, N Engl J Med 2014; 370(1 4):12 86-12 97.) Colog uard may produ ce a false negat kevin or false posit kevin resul t (no color ectal cance r or preca ncero us polyp prese nt at colon oscop y follo w up). A negat kevin Colog uard test resul t does not guara ntee the absen ce of CRC or advan sandro adeno ma (pre- cance r). The curre nt Colog uard scree sarah inter eric is every 3 years . (Amer ican Cance r Socie ty and U.S. Multi -Soci ety Task Force ). Colog uard perfo rmanc e data in a 10,00 0 patie nt pivot al study using colon oscop y as the refer ence metho d can be acces sed at the follo wing locat ion: www.e xactl abs.c om/re sults . Addit ional descr iptio n of the Colog uard test proce ss, warni ngs and preca ution s can be found at www.c ologu gold.c om. Not Available [facility] (Cologuard Orders Only) [address], [place], [address], 12/07/2023 18:09:06 02/29/20 22 02/28/2022 XR, foot [facility] [address] [place] [address] Patien t Name: JOHNIE QURESHI Access ion #: [id number] Sex: M : 1970 7 Locati on: RAD Attend ing Physic fabi: BAN STEVE Orderi Physic fabi: BAN STEVE Exam Date: 2021 2:49 PM Exam Name: XR FOOT LT 3V+ Admitt ing Diagno sis(es ): RADIOL OGY REPORT - FINAL EXAM: XR FOOT LT 3V+ HISTOR Y: PRESSU RE ULCER OF OTHER SITE,S TAGE 2 51-yea r-old male with left foot pressu re ulcer latera lly. COMPAR OSMEL: Radiog raphs dated 2021. TECHNI QUE: Three views of the left foot were perfor med. FINDIN GS: See below. IMPRES [place]: 1. No acute fractu re of the left foot. 2. Postop erativ e change s of resect ion of the distal 5th metata rsal Page 1 of 2 [facility] Patien t Name: JOHNIE QURESHI ion #: [id number] Sex: M : 1970 7 Exam Date: 2021 2:49 PM Exam Name: XR FOOT LT 3V+ Admitt ing Diagno sis(es ): re-christopher ntifie d. 3. Gas in the soft tissue s of the latera l aspect of the forefo ot, consis tent with open wound. No osseou s erosio ns are identi fied to sugges t advanc ed osteom yeliti s. No radiop aque foreig n bodies are identi fied in the soft tissue s. Modera te osteoa rthrit is of the 1st MTP and IP joints ; mild to modera te osteoa rthrit is of the midfoo t and ankle. 4. Other incide ntal findin gs includ e planta r calcan eal bone spur, Achill es insert ion enthes ophyte , and os trigon um. Create d and electr onical ly signed by: Yoshi love MD Signed Date: 2021 4:31 PM (CT) Dictat ed by: Yoshi love MD DD: 2021 4:31 PM (CT) DT: 2021 4:31 PM (CT) Page 2 of 2 MIGRATION. [facility] (Imaging) [address] [place], [address], 07/18/2022 04:52:22 03/01/20 22 03/01/2022 imagi ng/di agnos tic resul t No observ ation record ed. MIGRATION. [address], [place], [address], 07/18/2022 04:52:22 03/15/20 22 03/01/2022 MRI, foot, w/wo contr ast No observ ation record ed. MIGRATION. [id number] Not Available 07/18/2022 04:52:22 Result Notes None recorded. Problems Name Problem SNOMED Code Status Onset Date Resolution Date Notes Provider Name and Address Organization Details Recorded Time Renewal of prescript ion Active 2021 Not Available [facility] 4 05:11:34 Open wound of left lower leg 85147497181 227016 Active 2021 Not Available [facility] 4 05:11:34 Pressure ulcer of left foot 11233538753 430499 Active 2021 Not Available [facility] 4 05:11:34 Postopera tive care Active 2021 Not Available [facility] 4 05:11:34 Abdominal pain 14860110 Completed Not Available [facility] 3 04:45:06 Dehiscenc e of surgical wound 30788797 Active 2021 Not Available [facility] 4 05:11:34 Chronic osteomyel itis of foot 610390230 Active 2021 Not Available [facility] 4 05:11:34 Osteomyel itis of ankle AND/OR foot 58745000 Active 2021 Not Available [facility] 4 05:11:34 Ulcer of toe 431881049 Active 2021 Not Available [facility] 4 05:11:34 Hyperuric emia 83780250 Active Not Available [facility] 4 05:11:34 Dyslipide bill 361256677 Active 2018 Not Available [facility] 4 05:11:34 Hypertens kevin disorder 06129389 Active Not Available [facility] 4 05:11:34 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 Procedures Surgical History Date Name Laterality Status Provider Name and Address Organization Details Recorded Time Cholecystectomy completed Not Available [facility] 07/18/2022 04:41:02 Foot Surgery completed Mary Reyes RN [place] - [place] [employer] 07/26/2022 10:10:56 Imaging Results Imaging Date Name Status [facility]Modified by [facility] Details LastModified Time 03/01/2022 imaging/diagn ostic result completed [id number], [place], [address], 07/18/2022 04:52:22 03/01/2022 MRI, foot, w/wo contrast completed [id number] Information not available 07/18/2022 04:52:22 02/28/2022 XR, foot completed [id number] [facility] (Imaging) [address] [place], [address], 07/18/2022 04:52:22 Procedure Notes None recorded. Medical Equipment None Reported. Allergies No known drug allergies Medications Name Sig Start Date Stop Date Status Note LastModified by Organization Details LastModified Time celecoxib 200 mg capsule TAKE 1 CAPSULE BY MOUTH TWICE DAILY NEEDED 2023 active Not Available Not Available Not Avai lable prednisone 10 mg tablet 04/27 completed Not Available Not Available Not Available doxycyclin e hyclate 100 mg capsule TAKE 1 CAPSULE BY MOUTH TWICE DAILY FOR 10 DAYS DIRECTED 07/26 completed Not Available Not Available Not Available clindamyci n HCl 300 mg capsule Take 1 capsule 3 times a day by oral route for 7 days. active Not Available Not Available No t Available trazodone 50 mg tablet 04/11 completed Not Available Not Available Not Available atorvastat in 10 mg tablet TAKE 1 TABLET BY MOUTH EVERY DAY 2023 active Not Available Not Available Not Avai lable hydrocodon e 5 mg-acetami nophen 325 mg tablet TK 1 TO 2 TS PO Q 4-6 H PRN P RATED 4-6 04/27 completed Not Available Not Available Not Available Medrol (Low) 4 mg tablets in a dose pack Take by oral route. 03/22 completed Not Available Not Available Not Available prednisone 20 mg tablet TAKE 2 TABLETS BY MOUTH EVERY DAY NEEDED [employer] 2023 active Not Available Not Available Not Avai lable phentermin e 37.5 mg tablet TK 1 T PO 2 H AFTER PHILIPP active Not Available Not Available No t Available hydrocodon e 10 mg-acetami nophen 325 mg tablet 07/26 completed Not Available Not Available Not Available tramadol 50 mg tablet Take 1 tablet every 6 hours by oral route as needed. 06/15 completed Not Available Not Available Not Available acetaminop hen 500 mg tablet TK 1 T PO Q 3 H PRN 07/26 completed Not Available Not Available Not Available methotrexa te sodium 2.5 mg tablet Take 8 tablets every week by oral route for 28 days. 06/15 completed Not Available Not Available Not Available doxycyclin e monohydrat e 100 mg capsule Take 1 capsule twice a day by oral route as directed for 15 days. 07/26 completed Not Available Not Available Not Available cephalexin 500 mg capsule Take 1 capsule 3 times a day by oral route. 02/23 completed Not Available Not Available Not Available levothyrox ine 150 mcg tablet TAKE 1 TABLET BY MOUTH EVERY MORNING AND 1/2 TABLET IN THE EVENING active Not Available Not Available No t Available gabapentin 300 mg capsule TAKE 2 CAPSULES BY MOUTH AT BEDTIME 04/11 completed Not Available Not Available Not Available diclofenac sodium 75 mg tablet,del ayed release 06/28 completed Not Available Not Available Not Available diltiazem CD 120 mg capsule,ex tended release 24 hr TAKE 1 CAPSULE BY MOUTH DAILY 2023 active Not Available Not Available Not Avai lable folic acid 1 mg tablet Take 1 tablet every day by oral route for 90 days. 06/15 completed Not Available Not Available Not Available morphine ER 15 mg tablet,ext ended release 02/10 completed Not Available Not Available Not Available allopurino l 300 mg tablet TAKE 2 TABLETS BY MOUTH DAILY 2023 active Not Available Not Available Not Avai lable mupirocin 2 % topical ointment APPLY SMALL AMOUNT TOPICALL Y TO THE AFFECTED AREA ON LEFT FOOT THREE TIMES DAILY 07/26 completed Not Available Not Available Not Available Transderm- Scop 1 mg over 3 days transderma l patch Apply patch 4 hours before travel and change every 72 hours active Not Available Not Available No t Available SSD 1 % topical cream 07/26 completed Not Available Not Available Not Available colchicine 0.6 mg tablet Take 1 tablet every day by oral route as directed for 30 days. active Not Available Not Available No t Available losartan 100 mg tablet TAKE ONE TABLET DAILYN EEDS APPOINTM ENT 11/05 completed Not Available Not Available Not Available metformin ER 500 mg tablet,ext ended release 24 hr 04/11 completed never got filled Not Available Not Available Not Available amoxicilli n 500 mg-potassi um clavulanat e 125 mg tablet TAKE 1 TABLET BY MOUTH EVERY 12 HOURS FOR 10 DAYS DIRECTED 07/26 completed Not Available Not Available Not Available eszopiclon e 3 mg tablet TAKE 1 TABLET BY MOUTH EVERY NIGHT AT BEDTIME NEEDED FOR SLEEP 10/12 completed Not Available Not Available Not Available eszopiclon e 2 mg tablet TAKE 1 TABLET BY MOUTH EVERY DAY AT BEDTIME NEEDED SLEEP active Not Available Not Available No t Available Cosentyx 150 mg/mL subcutaneo us syringe Inject 2 mL every 2 weeks by subcutan eous route. 10/12 completed dupl Not Available Not Available Not Available Cosentyx Pen 300 mg/2 pens (150 mg/mL) subcutaneo us pen injector 04/11 completed Not Available Not Available Not Available Vitals Date Recorded Body height Oxygen saturation Oxygen saturation in Arterial blood by Pulse oximetry Heart rate Respiratory rate Body temperature Systolic blood pressure Diastolic blood pressure Provider Name and Address Organization Details Last Updated DateTime 2 213.36 cm 99 % 99 % 74 /min 20 /min 98.2 [degF] 144 mm[Hg] 78 mm[Hg] Not Available [facility] 3 04:42:55 Date Recorded Body height Oxygen saturation Oxygen saturation in Arterial blood by Pulse oximetry Heart rate Respiratory rate Body temperature Systolic blood pressure Diastolic blood pressure Provider Name and Address Organization Details Last Updated DateTime 2 213.36 cm 98 % 98 % 78 /min 28 /min 97.1 [degF] 137 mm[Hg] 88 mm[Hg] Not Available [facility] 3 04:42:55 Date Recorded Body height Body mass index (BMI) Body weight Body temperature Heart rate Systolic blood pressure Diastolic blood pressure Provider Name and Address Organization Details Last Updated DateTime 3 213.36 cm 31.9 kg/m2 278029. 56 g 97.3 [degF] 90 /min 122 mm[Hg] 76 mm[Hg] Mary albert RN [facility] 3 10:13:51 Date Recorded Body height Body mass index (BMI) Body weight Body temperature Heart rate Oxygen saturation Oxygen saturation in Arterial blood by Pulse oximetry Systolic blood pressure Diastolic blood pressure Provider Name and Address Organization Details Last Updated DateTime 3 213.36 cm 31.9 kg/m2 247424. 56 g 98.4 [degF] 80 /min 97 % 97 % 136 mm[Hg] 84 mm[Hg] Dora Amezcua RN [facility] 3 12:23:44 Date Recorded Body height Body temperature Heart rate Oxygen saturation Oxygen saturation in Arterial blood by Pulse oximetry Systolic blood pressure Diastolic blood pressure Provider Name and Address Organization Details Last Updated DateTime 4 213.36 cm 97.8 [degF] 80 /min 96 % 96 % 126 mm[Hg] 82 mm[Hg] MESERET Santamaria [place] [employer] [facility] 4 10:49:09 Social History Question Answer Notes LastModified by Organization Details LastModified Time Tobacco Smoking Status Never Smoker MESERET Nieves [facility] 11/27/2022 12:16:44 Do You Have An Advance Directive? No [id number] Information not available 07/18/2022 What Is Your Level Of Alcohol Consumption? Moderate [id number] Information not available 07/18/2022 What Is Your Level Of Caffeine Consumption? Occasional [id number] Information not available 07/18/2022 How Much Tobacco Do You Chew? None [id number] Information not available 07/18/2022 In The 14 Days Before Symptom Onset, Have You Had Close Contact With A Laboratory-conf irmed COVID-19 While That Case Was Ill? No Information not available 11/27/2022 In The 14 Days Before Symptom Onset, Have You Had Close Contact With A Person Who Is Under Investigation For COVID-19 While That Person Was Ill? No Information not available 11/27/2022 What Type Of Diet Are You Following? REGULAR [id number] Information not available 07/18/2022 Which Illicit Or Recreational Drugs Have You Used? None Information not available 11/27/2022 Do You Or Have You Ever Used E-cigarettes Or Vape? Never Used Electronic Cigarettes Information not available 11/27/2022 What Is The Highest Grade Or Level Of School You Have Completed Or The Highest Degree You Have Received? 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 No Information not available 11/27/2022 What Is The Fluoride Status Of Your Home? Unknown Information not available 11/27/2022 Are There Any Guns Present In Your Home? Yes Information not available 11/27/2022 Do You Use Insect Repellent Routinely? No Information not available 11/27/2022 Where Do You Live? SingleLevelHouse With Basement Information not available 11/27/2022 Do You Have A Medical Power Of Foreign Clerk? No Information not available 11/27/2022 What Was The Date Of Your Most Recent Tobacco Screening? 05/28/2023 [email or web address] Information not available 05/28/2023 Have You Ever Been Counseled For Unhealthy Alcohol Use? No Information not available 11/27/2022 Do You Have Any Pets? Yes Information not available 11/27/2022 What Is Your Relationship Status? [id number] Information not available 07/18/2022 Do You Use Your Seat Belt Or Car Seat Routinely? Yes Information not available 11/27/2022 Do You Have Smoke And Carbon Monoxide Detectors In Your Home? Yes Information not available 11/27/2022 Are You Passively Exposed To Smoke? No Information not available 11/27/2022 Do You Or Have You Ever Used Smokeless Tobacco? Never Used Smokeless Tobacco [id number] Information not available 07/18/2022 Are There Any Smokers In Your House? No Information not available 11/27/2022 How Much Tobacco Do You Smoke? No [id number] Information not available 07/18/2022 What Types Of Sporting Activities Do You Participate In? Bowling Information not available 11/27/2022 Do You Feel Stressed (tense, Restless, Nervous, Or Anxious, Or Unable To Sleep At Night)? [id number] Information not available 11/27/2022 Do You Use Any Illicit Or Recreational Drugs? No Information not available 11/27/2022 Do You Use Sunscreen Routinely? No Information not available 11/27/2022 Has Tobacco Cessation Counseling Been Provided? No Not Needed-nev er Smoked Information not available 11/27/2022 How Many Years Have You Smoked Tobacco? 0 Information not available 11/27/2022 Have You Recently Traveled Abroad? No Information not available 11/27/2022 Do You Have Any Dietary Restrictions? No Information not available 11/27/2022 Do You Or Have You Ever Used Any Other Forms Of Tobacco Or Nicotine? No Information not available 11/27/2022 Sex: Male Functional Status Question Answer Note LastModified by Organizat ion Details LastModified Time What is your exercise level? Occasional [id number] Information not available 07/18/2022 Mental Status None recorded. Family History Relationship Description Onset Age of this Age Resolved Age Notes LastModified by Organization Details LastModified Time Mother Essential hypertension [id number] Not available 07/18/2022 04:41:04 Father Essential hypertension 72 [id number] Not available 07/18/2022 04:41:04 Medical History Condition Response NERVE DISEASE N BLINDNESS N RHEUMATIC FEVER N KIDNEY STONES N BLADDER PROBLEMS N MRSA N OTHER # 1 N POLIO N LUNG DISEASE/DISORDER N RADIATION / CHEMOTHERAPY N COPD N Other # 2 N BLOOD DISEASES N EAR OR HEARING PROBLEMS N MUMPS N BOWEL PROBLEMS N DEPRESSION (INCLUDING POST ) N STROKE/TIA N ULCERS N BENIGN PROSTATIC HYPERPLASIA N MEASLES N MYOCARDIAL INFARCTION N OBESITY N GERD/NAUSEA N ANEURYSM N URINARY/BLADDER/KIDNEY PROBLEMS N CORONARY ARTERY DISEASE (CAD) N ADDICTION CONCERNS N ENDOMETRIOSIS N Impotence N USE OF BLOOD THINNERS N SKIN PROBLEMS N GASTROINTESTINAL DISORDER N PERIPHERAL VASCULAR DISEASE N MUSCLE,JOINT OR BONE PROBLEMS N GASTROINTESTINAL BLEEDING N BLOOD CLOTS N ASTHMA N CATARACTS N ERECTILE DYSFUNCTION N VARICOSITIES N GI PROBLEMS N Low Testosterone N INFERTILITY N AIDS/HIV N CHEMOTHERAPY / RADIATION N LIVER DISEASE N MALE HYPOGONADISM N HYPERTENSION Y Deficiency N TOURETTE'S N ANXIETY DISORDER N BLOOD TRANSFUSION N ANEMIA/BLOOD DISORDER N CHRONIC EAR INFECTIONS N BRONCHITIS N TUBERCULOSIS N GLAUCOMA N FOOT PROBLEM N DIVERTICULITIS N SLEEP APNEA N CHICKENPOX N INFECTIOUS DISEASE N HEART ARRHYTHMIA N PROSTATE N INSOMNIA N HIGH CHOLESTEROL / HYPERLIPIDEMIA Y HYPERTHYROIDISM N EYE PROBLEMS N EDEMA N CHRONIC PAIN SYNDROME N HYPOTHYROIDISM Y CAROTID BLOCKAGE N CONSTIPATION N BACK / NECK PROBLEMS N HAVE YOU BEEN HOSPITALIZED OR SEEN IN [facility] IN THE PAST YEAR ? N ATHEROSCLEROSIS N BREAST PROBLEMS N DIALYSIS N ECZEMA N OSTEOPOROSIS N ARTHRITIS Y APPENDICITIS N DIABETES, TYPE N BAD TEETH N ENT N HEARTBURN / REFLUX N AUTISM SPECTRUM DISORDER (ASD) N HEPATITIS / LIVER DISEASE N GOUT Y SLEEP DISORDER N ALZHEIMER'S DISEASE N Brain Problems N HERPES N DEMENTIA N HEADACHES/MIGRAINES N SEIZURES/EPILEPSY N VASCULAR DISEASE N PACEMAKER N Blood Disorder N DIZZINESS N HEART DISEASE/HEART PROBLEMS N KIDNEY DISEASE N MULTIPLE SCLEROSIS N CARDIAC ARRHYTHMIA N CANCER: SPECIFY N ATRIAL FIBRILLATION N Gall Stones N PULMONARY EMBOLISM N AUTOIMMUNE DISEASE N Immunizations Vaccine Type Date Status Note Provider Nam e and Address Organization Details Recorded Time COVID-19, mRNA, LNP-S, PF, 30 mcg/0.3 mL dose 09/16/2020 completed Not Available [facility] 4 05:11:36 COVID-19, mRNA, LNP-S, PF, 30 mcg/0.3 mL dose 08/19/2020 completed Not Available [facility] 4 05:11:36 Past Encounters Encounter ID Performer Location Encounter Start Date Encounter Closed Date Diagnosis/Indication Diagnosis SNOMED-CT Code Diagnosis ICD10 Code Diagnosis Note [id number] [facility] [place] [address] [place] [address], [facility] [address] [place] [address] 10/12/2020 00:00:00 10/17/2020 12:35:39 [id number] [facility] [place] [address] [facility] , [place] [address] 04/11/2021 00:00:00 04/15/2021 16:19:31 [id number] [facility] [place] [address] , [place] [address] 10/05/2021 00:00:00 10/28/2021 16:32:28 [id number] [facility] [place] [address] [facility] , [place] [address] 10/10/2021 00:00:00 10/10/2021 21:42:04 [id number] [facility] [address] [facility], [address] [address] 10/13/2021 00:00:00 10/13/2021 20:35:28 [id number] [facility] [place] [address] [facility] , [place] [address] 10/19/2021 00:00:00 11/22/2021 22:22:39 [id number] [facility] [address] [place] [address] 10/25/2021 00:00:00 10/25/2021 14:40:28 [id number] [facility] [address] [place] [address] 11/01/2021 00:00:00 11/01/2021 15:05:19 [id number] [facility] [place] [address] [facility] , [place] [address] 11/07/2021 00:00:00 11/07/2021 22:41:32 [id number] [facility] [address] [place] [address] 11/08/2021 00:00:00 11/08/2021 16:32:47 [id number] [facility] [address] [place] [address] 11/15/2021 00:00:00 11/15/2021 15:18:36 [id number] [facility] [address] [place] [address] 11/22/2021 00:00:00 11/22/2021 15:01:16 [id number] [facility] [address] [place] [address] 12/06/2021 00:00:00 12/06/2021 15:23:46 [id number] [facility] [address] [place] [address] 12/13/2021 00:00:00 12/14/2021 13:56:33 [id number] _ATHENA_M IGRATION_ DEFAULT_1 _1 , 12/25/2021 00:00:00 12/27/2021 11:44:11 [id number] [facility] [address] [place] [address] 12/27/2021 00:00:00 12/27/2021 11:41:41 [id number] _ATHENA_M IGRATION_ DEFAULT_1 _1 , 01/01/2022 00:00:00 01/01/2022 15:03:10 [id number] [facility] [address] [place] [address] 01/03/2022 00:00:00 01/03/2022 12:46:31 [id number] _ATHENA_M IGRATION_ DEFAULT_1 _1 , 01/08/2022 00:00:00 01/09/2022 13:55:56 [id number] [facility] [address] [place] [address] 01/10/2022 00:00:00 01/10/2022 11:57:07 [id number] [facility] [address] [place] [address] 01/15/2022 00:00:00 01/15/2022 14:48:16 [id number] [facility] [address] [place] [address] 01/17/2022 00:00:00 01/17/2022 16:32:54 [id number] [facility] [address] [place] [address] 01/24/2022 00:00:00 01/24/2022 10:05:29 [id number] [facility] [address] [place] [address] 01/31/2022 00:00:00 01/31/2022 10:31:51 [id number] [facility] [address] [place] [address] 02/07/2022 00:00:00 02/07/2022 10:11:59 [id number] [facility] [address] [place] [address] 02/14/2022 00:00:00 02/14/2022 09:49:41 [id number] [facility] [address] [place] [address] 02/21/2022 00:00:00 02/22/2022 10:46:53 [id number] [facility] [address] [place] [address] 02/28/2022 00:00:00 03/07/2022 14:06:42 [id number] [facility] [address] [place] [address] 03/07/2022 00:00:00 03/07/2022 16:10:56 [id number] [facility] [address] [place] [address] 03/21/2022 00:00:00 03/21/2022 16:17:18 [id number] [facility] [address] [place] [address] 04/05/2022 00:00:00 04/05/2022 15:53:45 [id number] Gilson Salgado MD [facility] [place] [address] [facility] , [facility] [place] [address] 07/26/2022 09:51:28 07/26/2022 11:12:52 Essential hypertension 29486610 I10 Hypothyroidism 72121751 E03.9 Screening for malignant neoplasm of prostate 669256701 Z12.5 Dyslipidemia 208903143 E 78.5 Gout 32102975 M10.9 Hypertensive disorder 38 876397 I10 [id number] Gilson Salgado MD [facility] Internal [facility] [address] [facility] [place] [address] 11/27/2022 12:15:10 11/27/2022 12:54:14 Renewal of prescription 730321795 Z76.0 Adult heal th examination 076084190 Z00.00 Depression screening 171 715935 Z13.31 Essential hypertension 53074029 I10 Gout 53863306 M10.9 Hyperuricemia 04704440 E 79.0 Hypothyroidism 13464373 E03.9 [id number] Gilson Salgado MD [facility] Internal [facility] Sundeep renny [address] [facility] , [place] [address] 05/28/2023 10:40:57 05/28/2023 11:29:02 Essential hypertension 99903400 I10 Screening for malignant neoplasm of colon 564718470 Z12.11 Dyslipidemia 584414665 E 78.5 Hypothyroidism 46824453 E03.9 Hyperuricemia 62724202 E 79.0 Gout 56786232 M10.9 Health Concerns Section Related Observation LastModified by Organization Detai ls LastModified Time None Recorded Concern Status LastModified by Organization Details LastModified Time None Recorded Advance Directives Directive N: Payers Encounter Date Sequence Insurance Name Policy Number Policy Garcia Covered Member ID Garcia Member ID Guarantor Name 07/26/2022 1 [facility] [id number] Staci Hermosillo [facility] [id number] Johnie Breen 11/27/2022 1 [facility] [id number] Staci Hermosillo [facility] [id number] Johnie Mottakirsten 05/28/[address] [place] [address] [id number] Staci Hermosillo [facility] [id number] Johnie Breen Notes Date Note Type Note Provider Name and Address Organization Details Recorded Time text/html Gout no flare-upsHypertension no headache or dizzinessHypothyroid no heat or cold intoleranceChronic osteo finally has cleared upDyslipidemia trying to follow a low-fat diet Gilson Salgado MD [address], [place], [address], [facility] 07/28/2022 19:50:29 3 text/html Gout no flare-ups dyslipidemia chest to follow low-fat diet hypertension seems to be doing fine Gilson Salgado MD [address], [place], [address], [facility] [employer] [facility] 11/27/2022 20:13:32 4 text/html Gout no flare-ups dyslipidemia chest to follow low-fat diet hypertension seems to be doing cynthia Salgado MD [address], [place], [address], [facility] 05/28/2023 22:12:17
--- OUTSIDE RECORDS SUMMARY | 2024-08-14 08:50 | XMS_ITS | CONTINUITY OF CARE DOCUMENT ---
Author Name dominic alfaro Address Unknown Organization [place] [facility] Address [address] [place] [address] Phone [phone] Care Team Providers Care Sweeper Brush Maker Machine Name Role Phone Indio Marks MD Unavailable Indio Marks MD Unavailable [phone] LUIS JOSEPH MD Unavailable [phone] INSURANCE PROVIDERS Payer name Policy type / Coverage type Leon red democrat ID [facility] [id number] Other [id number]
--- OUTSIDE RECORDS SUMMARY | 2024-08-14 08:50 | XMS_ITS | Clinical Summary ---
Author Organization [facility] Address [address] [place] [address] Care Team Providers Care Auto Carrier Driver Name Role Phone Gilson Salgado MD Primary Care Provider [phone] Allergies No known active allergies Medications allopurinoL [...] effect of fracture of lower extremity 01/18 Surgical History Surgery Date Site/Laterality Comments OTHER SURGICAL HISTORY hyoothyroidism Medical History Medical History Date Comments Hypertension Hypertension Hx Other Medical hyperurlcemia Hx Other Medical gout Family History Medical History Relation Name Comments Hypertension Father 2 Hypertension; Hypertension Mother 2 Hypertension; Other Mother 2 Alive and well; Relation Name Status Comments Father 1 (Age 72) Father 2 Mother 1 Alive Mother 2 Social History Tobacco Use Types Packs/Day Years [...] on file Legal Sex Male 9:44 PM [employer] Gender Identity Not on file Sexual Orientation Not on file Obstetrics History Last Filed Vital Signs Vital Sign Reading [...] Height 213.4 cm (7') 04/01/2014 2:57 PM [employer] Body Mass Index 33.44 04/01/2014 2:57 PM [employer] Plan of Treatment Health Maintenance Due Date Last Done Comments Colon Cancer Screening-Colonoscopy 1970 Depression Screening 1970 Hepatitis C Screening 1970 Prostate Cancer Screening-PSA 1970 DTaP/Tdap/Td Vaccine (1 - Tdap) 1981 Hepatitis B Screening 1988 Regular Well Visit/Exam 18-64 1988 Zoster Vaccine (1 of 2) 2020 Covid-19 Vaccine (4 2023-2 5 season) 2024 06/01/2021, 09/16/2020, 08/19/2020 Influenza Vaccine (#1) 2024 Pneumococcal vaccine <65 Aged Out No longer eligible based on patient's age to complete this topic Insurance [facility] Care Teams Auto Carrier Driver Relationship Specialty Start Date End Date Gilson Salgado MD PCP - General 04/01/14
[2024-08-14 12:55] LABS: Hematocrit 49.2 % (42.0-52.0); Mean Corpuscular HGB Conc 32.5 g/dl (32-36); Mean Corpuscular Hemoglobin 31.9 pg (26-34); Mean Platelet Volume 11.7 fl (7.4-10.4); Platelet Count Result 205 k/mm3 (150-375); Red Blood Count 5.02 M/mm3 (4.6-6.20); Red Cell Distribution Width 12.9 % (11.5-14.5)
[2024-08-14 13:02] LABS: Cholesterol 154 mg/dL (0-200); HDL Direct 44 mg/dL; Triglycerides 175 mg/dL (<150)
[2024-08-14 13:12] LABS: LDL Cholesterol Direct 79 mg/dL
[2024-08-14 13:27] LABS: Free T3 3.68 pg/mL (2.71-6.16)
[2024-08-14 13:28] LABS: Thyroid Stimulating Hormone 0.241 uIU/mL (0.465-4.680)
[2024-08-14 13:47] LABS: Band Neutrophils Percent 4 % (0-6); Basophils Percent Manual 0 % (0-1); Eosinophils Percent Manual 0 % (0-4); Giant Platelets Present; Large Platelets Present; Lymphocytes Absolute Manual 0.65 K/mm3 (1.1-4.5); Lymphocytes Percent Manual 5 % (18-44); Monocytes Absolute Manual 0.52 K/mm3 (0.1-0.90); Monocytes Percent Manual 4 % (3-9); Neutrophils Absolute Manual 11.83 K/mm3 (1.3-6.7); Neutrophils Percent Manual 87 % (46-73); Platelet Estimate Adequate (Adequate); Schistocytes None Seen; Total Cells Counted 100
[2024-08-14 13:50] LABS: Erythrocyte Sedimentation Rate 5 mm/hr (0-20)
[2024-08-14 14:37] LABS: Hemoglobin A1C 5.3 % (<5.7)
== END 2024-08-14 08:36 | disposition home or self-care (01) ==
LOC: ANHGOSHLAB 08:36
PROVIDERS: PCP Internal Medicine; Visit Provider Internal Medicine
DX: E03.9 Hypothyroidism, unspecified (principal); Z13.1 Encounter for screening for diabetes mellitus; Z13.6 Encounter for screening for cardiovascular disorders; L98.9 Disorder of the skin and subcutaneous tissue, unspecified
CPT/HCPCS: 36415; 80061; 83036; 84439; 84443; 84481; 85025; 85652